=== PATIENT | male | born 1980 | race Hispanic/Latino ===

== ENCOUNTER 2023-09-19 22:18 | Emergency (ER) | payer OTHER, SELFPAY ==
--- NOTE | ~2023-09-19 | XR_ITS ---
EXAMINATION: XR chest 2V DATE: 09/19/2023 22:45 INDICATION: Chest pain. TECHNIQUE: Frontal and lateral views of the chest were obtained. COMPARISON: None. FINDINGS: There is no pneumonia, pleural effusion, or pneumothorax. The heart size is normal. IMPRESSION: 1. No acute cardiopulmonary disease. Reviewed, dictated and finalized at location [facility]. L DOCTOR
--- NOTE | 2023-09-19 22:19 | ECG_ITS ---
Measurements Intervals [place] Rate: 89 P: 50 CT: 158 QRS: 72 QRSD: 90 T: 41 QT: 326 QTc: 398 Interpretive Statements SINUS RHYTHM MINIMAL VOLTAGE CRITERIA FOR LVH, CONSIDER NORMAL VARIANT [MEETS CRITERIA IN ONE OF: R(aVL), S(V1), R(V5), R(V5/V6)+S(V1)] ABNORMAL ECG NO PREVIOUS ECG AVAILABLE FOR COMPARISON Electronically Signed On 09-20-2023 8:19:42 REAL ESTATE PROFESSIONAL by Que Tse M.D.
[2023-09-19 22:25] VITALS: BP 133/92; PULSE 82; RESP 20; TEMP 36.4; O2SAT 100
[2023-09-19 22:40] LABS: Basophils Percent Auto 0.5 % (0.2-1.2); Eosinophils Absolute Auto 0.5 K/mm3 (0-0.3); Eosinophils Percent Auto 5.4 % (0-4.4); Hematocrit 47.3 % (42.0-52.0); Hemoglobin 15.6 g/dL (14.0-18.0); Immature Granulocyte Absolute 0.01 K/mm3 (0.00-0.031); Immature Granulocyte Percent A 0.1 % (0-0.5); Lymphocytes Absolute Auto 3.33 K/mm3 (0.9-3.2); Lymphocytes Percent Auto 39.2 % (18.3-44.2); Mean Corpuscular Hemoglobin 29.5 pg (26-34); Mean Corpuscular Volume 89.6 fl (80-100); Mean Platelet Volume 9.6 fl (7.4-10.4); Monocytes Absolute Auto 0.5 K/mm3 (0.1-0.6); Monocytes Percent Auto 5.3 % (2.6-8.5); Neutrophils Absolute Auto 4.2 K/mm3 (1.3-6.7); Neutrophils Percent Auto 49.5 % (45.5-73.1); Platelet Count Result 261 k/mm3 (150-375); Red Blood Count 5.28 M/mm3 (4.6-6.20); Red Cell Distribution Width 13.9 % (11.5-14.5); White Blood Count 8.5 K/mm3 (4.5-10.0)
[2023-09-19 22:53] LABS: Prothrombin Time 13.7 Seconds (11.1-14.7)
[2023-09-19 22:54] LABS: Partial Thromboplastin Time 31.4 SECONDS (22.3-36.8)
[2023-09-19 22:57] LABS: Alanine Aminotransferase 28 U/L (6-50); Albumin Level 4.7 g/dL (3.5-5.1); Alkaline Phosphatase 116 U/L (38-126); Anion Gap 10 mmol/L (8-16); Aspartate Amino Transferase 31 U/L (17-59); Bilirubin,Total 0.6 mg/dL (0.2-1.3); Blood Urea Nitrogen 17 mg/dL (9-20); Carbon Dioxide 27 mmol/L (22-30); Chloride 102 mmol/L (98-107); Estimated Glomerular Filt Rate > 60; Glucose 107 mg/dL (65-110); Lipase 93 U/L (23-300); Potassium 3.6 mmol/L (3.4-5.0); Sodium 139 mmol/L (137-145)
[2023-09-19 23:08] LABS: Troponin I < 0.012 ng/mL (0.000-0.034)
--- NOTE | 2023-09-20 00:38 | ED.CHESTPAIN ---
HPI - Chest Pain General Chief Complaint: Chest Pain Stated Complaint: chest pain Time Seen by Provider: 09/19/23 23:56 History of Present Illness HPI narrative: 43-year-old Hebrew-speaking male reports to the emergency department with multiple medical complaints. He is reporting left-sided anterior wall chest pressure, palpitations, dizziness, headache and generalized fatigue for the past 2 months. Patient states his chest discomfort is constant, nonradiating. Denies aggravating or alleviating factors. States he was evaluated at a local clinic and then again during the visit. He was prescribed propranolol for his palpitations and took it 2 times, however stopped taking it because he felt like his palpitations worsen. States he came to the ED today because he got health insurance yesterday. He denies cough, congestion, syncope, lower extremity edema, fever , hemoptysis, lower extremity edema. He does endorse anxiety and feels that his symptoms worsen when he feels anxious. denies head injury, vision changes, focal numbness or weakness. Denies family history of cardiac disease or strokes. Related Data Allergies Allergy/AdvReac Type Severity Reaction Status Date / Time No Known Allergies Allergy Verified 09/19/23 22:29 Review of Systems Review of Systems: CONSTITUTIONAL: Denies fever, chills, or sweats. EYES: Denies visual changes, redness, or discharge. ENT: Denies rhinorrhea, congestion, sore throat, or otalgia. CARDIOVASCULAR: See HPI RESPIRATORY: see HPI GASTROINTESTINAL: Denies abdominal pain, nausea, vomiting, or diarrhea. GENITOURINARY: Denies dysuria or hematuria. SKIN: Denies rash or itching. MUSCULOSKELETAL: Denies back pain, joint pain, or myalgia. NEUROLOGIC: see HPI PSYCHIATRIC: Denies anxiety or depression. Exam Narrative: GENERAL: Well-appearing, well-nourished, and in no acute distress. Patient resting comfortably in exam bed. He is pleasant and conversational. Anxious HEAD: Normocephalic, atraumatic. EYES: PERRLA and EOMI. ENT: Nares clear, no rhinorrhea or epistaxis. Mucous membranes moist. NECK: Supple. CHEST: Clear to auscultation. No respiratory distress. No tenderness to chest wall. HEART: Regular rate and rhythm. No murmur heard. Normal peripheral pulses. ABDOMEN: Soft, nontender, nondistended, normal active bowel sounds. EXTREMITIES: Normal range of motion. No edema. SKIN: Warm, dry, no rash. NEURO: No focal deficits. Alert and oriented x3. Cranial nerves 2-12 intact. Strength 5/5 BUE and BLE. Sensation intact throughout. Normal [id number]. No pronator drift. Course Vital Signs Vital signs: Vital Signs Temperature 97.6 F 09/19/23 22:25 Pulse Rate 82 09/19/23 22:25 Respiratory Rate 20 09/19/23 22:25 Blood Pressure 133/92 H 09/19/23 22:25 Pulse Oximetry 100 09/19/23 22:25 Oxygen Delivery Room Air 09/19/23 22:25 Temperature 97.6 F 09/19/23 22:25 Pulse Rate 78 09/20/23 02:22 Respiratory Rate 14 09/20/23 02:22 Blood Pressure 138/82 09/20/23 02:22 Pulse Oximetry 100 09/20/23 02:22 Oxygen Delivery Room Air 09/19/23 22:25 MDM - Chest Pain MDM Narrative Medical decision making narrative: 43-year-old male reports for evaluation for multiple medical complaints. See HPI for further history. Vitals stable. Patient is well-appearing on exam. He is neurovascularly intact. CBC and chemistries are largely unremarkable. No electrolyte abnormalities. magnesium normal. BNP normal. Lipase normal. Troponin x2 less than 0.012. EKG shows normal sinus rhythm with no ischemic changes. Chest x-ray is unremarkable. He is PERC negative. Labs and imaging discussed with the patient. He received p.o. Ativan with improvement. Upon re-evaluation, he is resting comfortably in the exam bed and denies chest pain. I suspect a component of anxiety to his symptoms. his heart score is 1 and chest pain is atypical. I will discharge him
[2023-09-20 01:01] LABS: NT Pro B Type Natriuretic Pept < 20 pg/mL (19.9-100)
[2023-09-20] MEDS: LORazepam (*CRX) 1 MG TABLET PO (01:17)
[2023-09-20 01:48] LABS: Magnesium 2.3 mg/dL (1.6-2.3)
[2023-09-20 02:01] LABS: Troponin I < 0.012 ng/mL (0.000-0.034)
[2023-09-20 02:22] VITALS: BP 138/82; PULSE 78; RESP 14; O2SAT 100
[2023-09-20 03:32] VITALS: BP 140/88; PULSE 70; RESP 15; O2SAT 100
--- NOTE | 2023-09-20 07:49 | ECG_ITS ---
Measurements Intervals [place] Rate: 69 P: 51 HI: 174 QRS: 66 QRSD: 88 T: 45 QT: 367 QTc: 395 Interpretive Statements SINUS RHYTHM EARLY REPOLARIZATION ABNORMAL ECG COMPARED TO ECG 09/19/2023 22:22:35 NO SIGNIFICANT CHANGES Electronically Signed On 09-20-2023 8:21:07 TERRITORY REPRESENTATIVE by Que Tse M.D.
== END 2023-09-20 03:33 | disposition home or self-care (01) ==
PROVIDERS: Emergency Medicine; Emergency Provider Physician Assistant
DX: R07.89 Other chest pain (principal); R00.2 Palpitations; Z79.899 Other long term (current) drug therapy
CPT/HCPCS: 36415; 71046; 80053; 83690; 83735; 83880; 84484; 85025; 85610; 85730; 93005; 99284; A9270

== ENCOUNTER 2024-03-10 15:54 | Emergency (ER) | payer OTHER, SELFPAY ==
[2024-03-10 17:37] LABS: Add Urine Microscopic? YES; Appearance Urine Clear (Clear); Bacteria Urine None Seen /hpf; Bilirubin Urine Negative (Negative); Blood Urine Negative (Negative); Color Urine Yellow (Yellow); Glucose Urine UA Negative (Negative); Ketones Urine Negative (Negative); Leukocyte Esterase Ur Negative LEU/UL (Negative); Nitrate Urine Negative (Negative); Non Pathogenic Casts 0-2; Protein Urine Trace mg/dL (Negative); RBC Urine 0-2 /hpf (0-2); Specific Grav Ur 1.027 (1.001-1.035); Squamous Epithelial Cell Urine None Seen /hpf (Few); WBC Urine 0-5 /hpf (0-3)
[2024-03-10 18:21] LABS: Trichomonas Vag PCR NOT DETECTED (NOT DETECTE)
--- NOTE | 2024-03-10 18:41 | ED.GENADULT ---
HPI - General Adult General Chief complaint: Urogenital-Male Stated complaint: YELLOW SPERM DURING SEX (STI CHECK) Time Seen by Provider: 03/10/24 16:08 History of Present Illness HPI narrative: [employer] used for all communication. This is a 44-year-old Turkmen-speaking male presenting to the ED because his sperm has changed from white to yellow. He recently obtained a new sexual partner and is concerned he may have an STD. He does not have any peel discharge or dysuria should he he does not have any penile pain testicular pain or abdominal pain. No history of STDs. Related Data Allergies Allergy/AdvReac Type Severity Reaction Status Date / Time No Known Allergies Allergy Verified 03/10/24 15:57 Exam Narrative: APPEARANCE: No apparent distress. Head: atraumatic. EYES: EOMI, NOSE: Atraumatic NECK: Trachea midline RESPIRATORY: No increased rate of breathing CARDIOVASCULAR: RRR, ABDOMINAL: Non-distended MUSCULOSKELETAl: No obvious deformities : Normal external genitalia, no gross or ulcerations. No testicular pain. No expressible penile discharge. uncircumcised. NEURO: Alert. Moving 4/4 extremities SKIN:: Warm, dry. Normal color PSYCHIATRIC: Normal affect Medical Decision Making MDM Narrative Medical decision making narrative: -Course: 44-year-old male presenting ED with discolored semen. He is concerned about STDs. STD testing negative. UA negative. Patient discharged. Differential: UTI, STD, normal semen -Independent interpretation of studies: UA not indicative infection. G/C/T negative -Shared decision making / Disposition: discharged Lab Data Labs: Lab Results 03/10/24 03/10/24 Range/Units 17:05 17:20 Urine Color Yellow (Yellow) Urine Appearance Clear (Clear) Urine pH 6.0 (5.0-9.0) Ur Specific [place] 1.027 (1.001-1.035) Urine Protein Trace (Negative) mg/dL Urine Glucose (UA) Negative (Negative) mg/dL Urine Ketones Negative (Negative) mg/dL Ur Blood (Man) Negative (Negative) Urine Nitrate Negative (Negative) Urine Bilirubin Negative (Negative) Urine Urobilinogen 1.0 (<2.0) mg/dL Leukocyte Esterase Rfl Negative (Negative) RICHARD/UL Urine RBC 0-2 (0-2) /hpf Urine WBC 0-5 (0-3) /hpf Ur Squamous Epith Cells None seen (Few) /hpf Urine Bacteria None seen /hpf Urine Casts 0-2 C. trachomatis (PCR) Pending N. gonorrhoeae (PCR) Pending T. vaginalis (PCR) Not detected (NOT DETECTE) Discharge Plan Discharge Clinical Impression: Discolored semen Patient Disposition: Home, Self-Care Condition: Stable Instructions: Antibiotic Form Additional Instructions: Please follow-up your primary care physician. You do not have any STDS. Por favor, consulte con monreal m?dico de cabecera. No tiene ninguna ETS. Prescriptions: No Action hydroxyzine pamoate 50 mg capsule 50 mg PO TID PRN (Reason: anxiety) Qty: 20 0RF Follow-up/Referrals: UNKNOWN,DOCTOR [Primary Care Provider] -
[2024-03-10 18:44] LABS: Chlamydia trachomatis NOT DETECTED (NOT DETECTE); Neisseria gonorrhoeae PCR NOT DETECTED (NOT DETECTE)
--- NOTE | 2024-03-10 19:02 | PC.NURSE ---
Attempted to go and discharge patient and he was not in the room. Unsure of where patient is at this time.
[2024-03-10 20:35] VITALS: RESP 17
--- NOTE | 2024-03-10 20:44 | PC.NURSE ---
ON 03/10/2024 @ 2029 PT REAPPEARED TO ED JACKELYN C, ASKING FOR HIS RESULTS. PT D/C'D AT 2034 BY THIS RN.
== END 2024-03-10 20:35 | disposition home or self-care (01) ==
PROVIDERS: Emergency Provider Emergency Medicine
DX: Z11.3 Encounter for screening for infections with a predominantly sexual mode of transmission (principal); R36.1 Hematospermia
CPT/HCPCS: 81001; 87491; 87591; 87661; 99283